=== PATIENT | male | born 1980 | race African-American/Black ===

== ENCOUNTER 2017-12-07 07:34 | Emergency (ER) | payer OTHER ==
[~2017-12-07] VITALS: Ht 170.2 cm; Wt 70.0 kg
[2017-12-07] MEDS ORDERED: IBUPROFEN 600MG TABLET PO ONE (11:15)
[2017-12-07] MEDS ORDERED: CARISOPRODOL 350 MG TABLET PO ONE (11:15)
[2017-12-07 11:50] VITALS: BP 127/84
== END 2017-12-07 11:51 | disposition home or self-care (01) ==
LOC: ER 08:22
DX: Z04.1 Encounter for examination and observation following transport accident (principal); F17.200 Nicotine dependence, unspecified, uncomplicated; Y92.410 Unspecified street and highway as the place of occurrence of the external cause
CPT/HCPCS: 71045; 73030; 99284